=== PATIENT | female | born 1970 | race Caucasian/White ===

== ENCOUNTER 2016-06-21 15:20 | Emergency (ER) | payer OTHER ==
[~2016-06-21] VITALS: Ht 165.1 cm; Wt 78.1 kg
[~2016-06-21 15:20] MED LIST: AMITRIPTYLINE H10 MG PO; AMITRIPTYLINE H25 MG PO; ANTIVERT25 MG PO; ASPIR-LOW81 MG PO; ATARAX,VISTARIL25 MG PO; ATORVASTATIN CA20 MG PO; ATORVASTATIN CA80 MG PO; BACTRIM,SEPT1 TABLET PO; BUTALB-APAP-CA1 EACH PO; CIPRO500 MG PO; COLACE100 MG PO; COUMADIN1 MG PO; COUMADIN5 MG PO; CYMBALTA60 MG PO; ELAVIL25 MG PO; FIORICET 50-301 EACH PO; FLOMAX0.4 MG PO; GABAPENTIN400 MG PO; IBUPROFEN800 MG PO; KEFLEX500 MG PO; KETOROLAC TROME10 MG PO; LAMICTAL25 MG PO; LORTAB 5-325 M1 EACH PO; LOVENOX120 MG/0.8 SC; LOVENOX80 MG/0.8 SC; MOBIC7.5 MG PO; NEURONTIN100 MG PO; NICOTINE PATCH1 EAC1 TD; NORCO 5/3251 TABLET PO; PERCOCET 5/31 TABLET PO; SERTRALINE HCL50 MG PO; SUBOXONE 2 MG-1 EACH SL; TOPAMAX100 MG PO; TORADOL10 MG PO; TYLENOL WITH C1 EACH PO; WARFARIN SODIUM5 MG PO; XANAX0.5 MG PO; ZOFRAN ODT4 MG PO; ZOFRAN4 MG PO; ZOLOFT50 MG PO; ZONISAMIDE100 MG PO
[2016-06-21 16:50] LABS: HEMATOCRIT 37.6 % (36.0-46.0); MCH 29.5 PG (29.0-34.0); MCHC 31.9 G/DL (30.0-36.0); MCV 92.4 FL (83-99); MEAN PLAT.VOLUME 9.1 uM^3 (9.5-12.4); PLATELET COUNT 384 K/uL (156-360); RBC DIS.WIDTH-CV 11.9 % (11.8-14.6); RBC DIS.WIDTH-SD 40.5 % (39-53); RED BLOOD COUNT 4.07 M/uL (3.80-5.20); WHITE BLOOD COUNT 5.2 K/uL (4.1-10.2)
[2016-06-21 16:56] LABS: ADD MIUA? NO; BILIRUBIN NEGATIVE; BLOOD NEGATIVE; COLOR STRAW ((YELLOW)); GLUCOSE (STRIP) NEGATIVE; KETONES NEGATIVE; LEUKOCYTES NEGATIVE; NITRITE NEGATIVE; PROTEIN (STRIP) NEGATIVE; SPECIFIC GRAVITY 1.005 (1.000-1.030); UROBILINOGEN 0.2 MG/DL (0.2-1.0)
[2016-06-21 16:59] LABS: CHLORIDE 109 mEq/L (99-109); POTASSIUM 3.8 mEq/L (3.7-5.4); SODIUM 141 mEq/L (136-147)
[2016-06-21 17:01] LABS: GLUCOSE 87 mg/dL (70-99)
[2016-06-21 17:03] LABS: ANION GAP 7 MEQ/L (2-14)
[2016-06-21 17:05] LABS: GFR ESTIMATE (CALCULATED) > 59 mL/min/
[2016-06-21 17:06] LABS: D-DIMER ELISA 0.33 mg/L FEU (< 0.57); UREA NITROGEN (BUN) 7 mg/dL (9-23)
[2016-06-21 17:08] LABS: CREATINE KINASE 96 IU/L (1-294)
[2016-06-21 17:12] LABS: TROP-I INTERPRETATION NEGATIVE; TROPONIN-I < 0.01 ng/mL (0.0-0.30)
[2016-06-21 18:00] LABS: ERTH.SED.RATE 19 MM/HR (0-20)
[2016-06-21 19:12] LABS: TROP-I INTERPRETATION NEGATIVE; TROPONIN-I < 0.01 ng/mL (0.0-0.30)
[2016-06-21] MEDS ORDERED: INDOCIN50 MG PO (19:36)
[2016-06-21 19:42] VITALS: BP 135/71
== END 2016-06-21 19:46 | disposition home or self-care (01) ==
LOC: EME 15:20
PROVIDERS: Physician Assistant
DX: R07.89 Other chest pain (principal); R60.0 Localized edema; M79.604 Pain in right leg; M79.605 Pain in left leg; M25.559 Pain in unspecified hip; R53.83 Other fatigue; M54.9 Dorsalgia, unspecified; M79.7 Fibromyalgia; Z86.718 Personal history of other venous thrombosis and embolism; G89.29 Other chronic pain; Z79.891 Long term (current) use of opiate analgesic; Z87.891 Personal history of nicotine dependence
CPT/HCPCS: 71020; 80048; 81003; 82550; 83735; 84484; 85027; 85379; 85651; 93005; 99281; 99283; J1885

== ENCOUNTER 2016-07-03 17:56 | Emergency (ER) | payer OTHER ==
[~2016-07-03] VITALS: Ht 165.1 cm; Wt 76.9 kg
[~2016-07-03 17:56] MED LIST changes: +INDOCIN50 MG PO
[2016-07-03 21:42] LABS: BASOPHIL COUNT 0.1 K/uL (0-0.1); EOSINOPHIL (%) 2.2 % (0-5); EOSINOPHIL COUNT 0.1 K/uL (0-0.3); HEMATOCRIT 38.3 % (36.0-46.0); IMMATURE GRANULOCYTE (%) 0.3 % (0.0-0.7); INSTRUMENT ABS NEUTROPHIL CT 3.2 K/uL; LYMPHOCYTE COUNT 2.4 K/uL (1.0-2.8); MCH 29.5 PG (29.0-34.0); MCHC 32.1 G/DL (30.0-36.0); MCV 91.8 FL (83-99); MEAN PLAT.VOLUME 9.2 uM^3 (9.5-12.4); MONOCYTE (%) 8.6 % (3-12); MONOCYTE COUNT 0.6 K/uL (0-0.8); NEUTROPHIL COUNT 3.2 K/uL (1.8-6.4); PLATELET COUNT 408 K/uL (156-360); RBC DIS.WIDTH-CV 12.1 % (11.8-14.6); RED BLOOD COUNT 4.17 M/uL (3.80-5.20); WHITE BLOOD COUNT 6.4 K/uL (4.1-10.2)
[2016-07-03 21:50] LABS: CHLORIDE 109 mEq/L (99-109)
[2016-07-03 21:51] LABS: POTASSIUM 3.9 mEq/L (3.7-5.4); SODIUM 141 mEq/L (136-147)
[2016-07-03 21:53] LABS: GLUCOSE 88 mg/dL (70-99)
[2016-07-03 21:54] LABS: ANION GAP 9 MEQ/L (2-14)
[2016-07-03 21:55] LABS: TOTAL BILIRUBIN 0.2 mg/dL (0.0-1.0)
[2016-07-03 21:56] LABS: ALKALINE PHOSPHATASE 70 IU/L (3-129); GFR ESTIMATE (CALCULATED) > 59 mL/min/
[2016-07-03 21:58] LABS: UREA NITROGEN (BUN) 11 mg/dL (9-23)
[2016-07-03] MEDS ORDERED: LASIX40 MG PO (23:08)
[2016-07-03 23:37] VITALS: BP 129/87
== END 2016-07-03 23:50 | disposition home or self-care (01) ==
LOC: EME 17:56
PROVIDERS: Emergency Medicine
DX: R60.0 Localized edema (principal); Z86.718 Personal history of other venous thrombosis and embolism; Z87.891 Personal history of nicotine dependence
CPT/HCPCS: 80053; 85025; 93970; 99281; 99285; J1940